=== PATIENT | male | born 1990 | race Caucasian/White ===

== ENCOUNTER → 2020-11-06 | Day surgery (SDC) | payer OTHER ==
[2020-11-01 11:47] LABS: BASOPHILS % (AUTO) 0.8 % (0-1); EOSINOPHILS # (AUTO) 0.1 X10'3 (0-0.9); EOSINOPHILS % (AUTO) 2.5 % (0-6); LYMPHOCYTES # (AUTO) 1.7 X10'3 (1.1-4.8); LYMPHOCYTES % (AUTO) 34.1 % (21-51); MEAN CORPUSCULAR HEMOGLOBIN 33.3 PG (27.0-31.0); MEAN CORPUSCULAR HGB CONC 34.5 g/dL (33.0-36.5); MEAN CORPUSCULAR VOLUME 96.4 FL (78-98); MEAN PLATELET VOLUME 8.3 FL (7.4-10.4); MONOCYTES # (AUTO) 0.5 X10'3 (0-0.9); MONOCYTES % (AUTO) 9.4 % (2-12); NEUTROPHILS # (AUTO) 2.6 X10'3 (1.8-7.7); NEUTROPHILS % (AUTO) 53.2 % (42-75); PRE OP HEMATOCRIT 49.4 % (42.0-52.0); PRE OP PLATELET COUNT 233 X10'3 (140-440); RED BLOOD COUNT 5.12 X10'6 (4.70-6.10); RED CELL DISTRIBUTION WIDTH 12.2 % (11.5-14.5)
[2020-11-01 11:58] LABS: PRE OP INR 1.1 INR; PRE OP PROTIME 11.2 SECONDS (9.0-12.0)
[2020-11-01 12:02] LABS: ALBUMIN 4.3 G/DL (3.4-5.0); ALBUMIN/GLOBULIN RATIO 1.2 (1.1-1.5); ALKALINE PHOSPHATASE 93 IU/L (46-116); BLOOD UREA NITROGEN 14 MG/DL (7-18); BUN/CREATININE RATIO 17.5 (5.4-32.0); CALCIUM 8.7 MG/DL (8.5-10.1); CHLORIDE 106 MMOL/L (99-107); PRE OP ALT 43 U/L (30-65); PRE OP ANION GAP 9 (8-16); PRE OP AST 23 U/L (10-37); PRE OP GLUCOSE 87 MG/DL (70-104); PRE OP POTASSIUM 3.6 MMOL/L (3.4-5.1); PRE OP SODIUM 142 MMOL/L (135-145); TOTAL CARBON DIOXIDE 27.2 MMOL/L (24-32); TOTAL PROTEIN 7.9 G/DL (6.4-8.2); eGFR > 90 ML/MIN
[2020-11-01 15:20] LABS: PLATELET FUNCTION (ADP) 104 SECONDS (63-104)
[~2020-11-06] VITALS: Ht 193 cm; Wt 97.5 kg
[2020-11-06] VITALS (9 sets, daily range): BP systolic 135–147; BP diastolic 78–83
[~2020-11-06] MED LIST: HYDROcodone/acetaminophen 10/325mg tab PO ONE; LIDOcaine 1% W/epiNEPHrine 1:100,000 20ml vial ONE; LORA10CA PO; OXYM30SP26 BOTHNARES; ceFAZolin 1000mg inj ONE; cocaine 4% topical solution 4ml bottle ONE; dexamethasone sod phosphate 4mg/ml inj. ONE; diazepam 5mg tablet PO PRN; famotidine 20mg tablet PO ONE; fentaNYL/PF 50MCG/1 ML 2ML syringe ONE; meperidine/PF 25mg/ml syringe IV PRN; midazolam 1 mg/ML 2ml injection ONE; morphine 2 MG/ML inj. syringe IV PRN; morphine 4 MG/ML inj SYRINge IV PRN; mupirocin 2% ointment 22GM ONE; ondansetron/PF 4mg/2ml inj IV PRN; ondansetron/PF 4mg/2ml inj ONE; oxymetazoline 15 ML nasal spray NS ONE; oxymetazoline 15 ML nasal spray NS PRN; proCHLORperazine 10 MG/2 ml inj IV PRN; propofol inj 20 ML IV ONE; ringers solution, lacted 1,000 ML IV SCH; rocuronium 10mg/ml inj IV ONE; salt irrigation nasal spray 45 ML SPRAY NS PRN; sevoflurane 250ml liquid IH ONE
--- NOTE | 2020-11-06 14:00 | NUR ---
ADMITTED TO PACU FROM OR ACCOMPANIED BY ANESTHESIA. INTIAL PHYSICAL ASSESSMENT DONE AND RECORDED. REPORT RECEIVED FROM ANESTHESIA.
--- NOTE | 2020-11-06 15:15 | NUR ---
DISCHARGE CRITERIA MET, DISCHARGE INSTRUCTIONS GIVEN, DEMONSTRATES VERBAL UNDERSTANDING. DISCHARGED HOME IN GOOD CONDITION.
== END | disposition home or self-care (01) ==
LOC: PAS 09:23
PROVIDERS: ATTEND Otolaryngology
DX: J34.2 Deviated nasal septum (principal); J34.3 Hypertrophy of nasal turbinates; J34.89 Other specified disorders of nose and nasal sinuses; Z98.890 Other specified postprocedural states; F17.220 Nicotine dependence, chewing tobacco, uncomplicated; Z72.89 Other problems related to lifestyle; Z79.899 Other long term (current) drug therapy; Z20.822 Contact with and (suspected) exposure to COVID-19; Z79.01 Long term (current) use of anticoagulants
CPT/HCPCS: 30140; 30520; 31240; 36415; 80053; 82948; 85025; 85576; 85610; 85730; A6402; C9250; J0690; J1100; J2250; J2405; J2704; J3010; J7040; J7120; U0003; U0005; Z7506; Z7508; Z7512; A4618; A7000

== ENCOUNTER 2020-11-27 07:57 | Day surgery (SDC) | payer OTHER ==
[~2020-11-27] VITALS: Ht 193 cm; Wt 100.2 kg
[2020-11-27] VITALS (8 sets, daily range): BP systolic 108–142; BP diastolic 57–86
[~2020-11-27 07:57] MED LIST changes: -HYDROcodone/acetaminophen 10/325mg tab PO ONE; -LORA10CA PO; +NO HOME MEDS; -OXYM30SP26 BOTHNARES; -ceFAZolin 1000mg inj ONE; +cefTAZidime 1gm inj ONE; -dexamethasone sod phosphate 4mg/ml inj. ONE; -fentaNYL/PF 50MCG/1 ML 2ML syringe ONE; -meperidine/PF 25mg/ml syringe IV PRN; -midazolam 1 mg/ML 2ml injection ONE; -morphine 2 MG/ML inj. syringe IV PRN; -morphine 4 MG/ML inj SYRINge IV PRN; -ondansetron/PF 4mg/2ml inj IV PRN; -ondansetron/PF 4mg/2ml inj ONE; -oxymetazoline 15 ML nasal spray NS PRN; -proCHLORperazine 10 MG/2 ml inj IV PRN; -propofol inj 20 ML IV ONE; -rocuronium 10mg/ml inj IV ONE; -salt irrigation nasal spray 45 ML SPRAY NS PRN; -sevoflurane 250ml liquid IH ONE
[2020-11-27] MEDS: oxymetazoline 15 ML nasal spray NS PRN ×2 (08:57→10:20)
[2020-11-27] MEDS ORDERED: fentaNYL/PF 50MCG/1 ML 2ML syringe ONE (09:48)
[2020-11-27] MEDS ORDERED: midazolam 1 mg/ML 2ml injection ONE (09:48)
[2020-11-27] MEDS ORDERED: propofol inj 20 ML IV ONE (09:49)
[2020-11-27] MEDS ORDERED: proCHLORperazine 10 MG/2 ml inj IV PRN (09:50)
[2020-11-27] MEDS ORDERED: morphine 4 MG/ML inj SYRINge IV PRN (09:50)
[2020-11-27] MEDS ORDERED: meperidine/PF 25mg/ml syringe IV PRN ×3 (09:50)
[2020-11-27] MEDS ORDERED: morphine 2 MG/ML inj. syringe IV PRN (09:50)
[2020-11-27] MEDS ORDERED: ringers solution, lacted 1,000 ML IV SCH (09:50)
[2020-11-27] MEDS ORDERED: ondansetron/PF 4mg/2ml inj IV PRN (09:50)
[2020-11-27] MEDS ORDERED: sevoflurane 250ml liquid IH ONE (09:51)
[2020-11-27] MEDS ORDERED: ondansetron/PF 4mg/2ml inj ONE (10:42)
[2020-11-27] MEDS ORDERED: dexamethasone sod phosphate 4mg/ml inj. ONE (10:42)
--- NOTE | 2020-11-27 11:02 | NUR ---
Received from OR via , accompanied by Anesthesiologist DR CAMPOS and report given by Anesthesiolgist.AWAKENS TO VOICE. VITALS STABLE. BERENICE PAIN. NO BLEEDING NOTED.
[2020-11-27] MEDS ORDERED: HYDROcodone/acetaminophen 5mg/325mg tablet PO ONE (11:50)
--- NOTE | 2020-11-27 12:02 | NUR ---
AWAKE AND ORIENTED. VITALS STABLE. DRESSING DI. STATES PAIN IMPROVING. HOME WITH A FRIEND AT THIS TIME.
[2020-11-27] MEDS ORDERED: salt irrigation nasal spray 45 ML SPRAY NS PRN (12:05)
== END 2020-11-27 12:02 | disposition home or self-care (01) ==
LOC: PAS 07:57
PROVIDERS: ATTEND Otolaryngology
DX: J32.8 Other chronic sinusitis (principal); J34.1 Cyst and mucocele of nose and nasal sinus; J34.89 Other specified disorders of nose and nasal sinuses; Z20.822 Contact with and (suspected) exposure to COVID-19; Z98.890 Other specified postprocedural states; Z79.899 Other long term (current) drug therapy
CPT/HCPCS: 31254; 31267; 61782; 82948; 87635; A6402; C9250; C9803; J0713; J1100; J2175; J2250; J2405; J2704; J3010; J7040; Z7506; Z7508; Z7512; A4618; A7000; J7120